=== PATIENT | male | born 1935 | race Hispanic/Latino ===

== ENCOUNTER 2019-09-04 05:36 | Observation (INO) | payer MEDICARE, OTHER ==
[2019-09-01 13:10] LABS: BASOPHILS # (AUTO) 0.1 (0.0-0.1); BASOPHILS % 1.2 % (0.0-1.0); EOSINOPHILS # (AUTO) 0.3 (0.0-0.4); HEMOGLOBIN 11.7 g/dL (14.0-18.0); LYMPHOCYTES # (AUTO) 1.7 (1.0-3.2); LYMPHOCYTES % 32.2 % (18.0-39.1); MEAN CORPUSCULAR HEMOGLOBIN 32.1 pg (28-32); MEAN CORPUSCULAR HGB CONC 32.5 g/dL (31-35); MEAN CORPUSCULAR VOLUME 98.9 fL (81-99); MONOCYTES # (AUTO) 0.5 (0.2-0.8); MONOCYTES % 8.9 % (4.4-11.3); NEUTROPHILS # (AUTO) 2.7 (2.1-6.9); NEUTROPHILS % 52.5 % (38.7-80.0); PLATELET COUNT 181 x10e3/uL (140-360); RED BLOOD COUNT 3.64 x10e6/uL (4.3-5.7); RED CELL DISTRIBUTION WIDTH 14.1 % (11.7-14.4)
--- NOTE | 2019-09-01 13:14 | Diagnostic Imaging Report ---
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 The trachea is midline. There are mildly increased bibasilar opacity suggestive of atelectasis/scarring. The lungs are otherwise symmetrically expanded without evidence for large focal consolidation, pneumothorax, or significant pleural effusion. The cardiomediastinal silhouette and pulmonary vasculature are within normal limits. Atherosclerotic calcifications and mild tortuosity noted of the thoracic aorta. No acute osseous abnormality is identified. The surrounding soft tissues are unremarkable. IMPRESSION: No acute cardiopulmonary process identified. Signed by: Dr. Abdulaziz Lugo MD on 09/01/2019 1:11 PM
[2019-09-01 13:25] LABS: ANION GAP 12.4 mmol/L (8-16); CALCIUM 9.1 mg/dL (8.4-10.2); CREATININE, SERUM 1.54 mg/dL (0.72-1.25); POTASSIUM 4.4 mmol/L (3.5-5.1)
[~2019-09-04] VITALS: Ht 165.1 cm; Wt 81.2 kg
[~2019-09-04 05:36] MED LIST: ASPIR 8181 MG PO; CARVEDILOL3.125 MG PO; CETIRIZINE HCL5 MG PO; DEXILANT60 MG PO; ENTRESTO 24 MG1 EACH PO; FINASTERIDE5 MG PO; FLOMAX0.4 MG PO; FUROSEMIDE40 MG PO; LIPITOR10 MG PO; NITROGLYCERIN0.4 MG SL; OXYBUTYNIN CHLOR5 M1 PO; RAMIPRIL5 MG PO; ULORIC40 MG PO; ULTRAM50 MG PO
[2019-09-04] MEDS ORDERED: CEFTRIAXONE SOD 1 GM/NS 50 ML 50 ML IV ONE (07:23)
[2019-09-04] MEDS ORDERED: B&O 60MG R/S 60 MG SUPP PR ONE (08:21)
[2019-09-04] MEDS ORDERED: ETOMIDATE 2 MG/ML 10 ML INJ IV ONE (14:51)
[2019-09-04] MEDS ORDERED: PROPOFOL IV EMULSION 10 MG/ML 20 ML VIAL ONE (14:51)
[2019-09-04] MEDS ORDERED: LIDOCAINE HCL 2% LOCAL INJ 5 ML SDV VIAL INJ ONE (14:51)
[2019-09-04] MEDS ORDERED: SEVOFLURANE INHAL SOLN 250 ML PEN BTL ONE (14:51)
[2019-09-04] MEDS ORDERED: ONDANSETRON HCL INJ 2MG/ML 2ML 2 MG/ML VIAL ONE (14:51)
[2019-09-04] MEDS ORDERED: EPHEDRINE SULFATE INJ 50 MG/ML VIAL ONE (14:51)
[2019-09-04] MEDS ORDERED: DEXAMETHASONE SOD PHOS INJ 4 MG/ML VIAL ONE (14:51)
[2019-09-04 16:06] VITALS: BP 115/71
[2019-09-04 16:10] VITALS: BP 115/71
--- NOTE | 2019-09-04 16:10 | NUR ---
PATIENT RECEIVED FROM PACU PER STRETCHER. ALERT AND VERBALLY RESPONSIVE. DENIED PAIN AT THIS TIME. SKIN WARM AND DRY TO TOUCH, RESP EVEN AND UNLABORED, ABDOMEN SOFT AND NON DISTENDED. CONTINUED BLADDER IRRIGATION IN PROGRESS; BLOODY URINE OBSERVED. BLOOD NOTED AROUND THE PENIS, PERINEAL CARE PROVIDED. TELEMETRY BOX [address] BED IN LOWER POSITION, CALL LIGHT AT REACH, INSTRUCTED TO CALL FOR ASSISTANCE NEEDED.
--- NOTE | 2019-09-04 19:10 | NUR ---
patient received awake, alert, lying quietly in bed. no c/o pain noted. cbi continues without difficulty. pm assessment complete. call lindquist placed within reach. patient instructed to call for assistance when needed.
--- NOTE | 2019-09-04 19:10 | NUR ---
patient received awake, alert, lying quietly in bed. no c/o pain noted. patient npo after mn for stress test tomorrow. patient verbalizes understanding of this. pm assessment complete. call lindquist placed within reach. patient instructed to call for assistance when needed. Addendum: 09/04/19 at 1940 by Mirta Mendieta RN error--wrong patient.
--- NOTE | 2019-09-04 19:11 | NUR ---
BEDSIDE REPORT GIVEN TO ON COMING NURSE. CBI IN PROGRESS.
[2019-09-04] MEDS ORDERED: FENTANYL CITRATE/PF 100MCG/2 ML INJ ONE (19:57)
[2019-09-04 20:55] VITALS: BP 102/69
[2019-09-04 21:04] VITALS: BP 102/69
[2019-09-05] VITALS (8 sets, daily range): BP systolic 102–110; BP diastolic 56–78
--- NOTE | 2019-09-05 07:17 | NUR ---
PATIENT IN BED RESTING WITH NO S/S OF DISTRESS. CBI IN PROGRESS. BED IN LOWER POSITION, CALL LIGHT AT REACH.
--- NOTE | 2019-09-05 11:49 | NUR ---
CBI IN PROGRESS, URINE CLEARING UP. PATIENT IN BED WITH CALL LIGHT AT REACH.
--- NOTE | 2019-09-05 15:15 | NUR ---
PATIENT SITTING UP IN BED TALKING ON THE PHONE, NO DISTRESS NOTED. CALL LIGHT AT REACH.
--- NOTE | 2019-09-05 18:53 | NUR ---
SPOKE WITH DR LOCKWOOD REGARDING PATIENT, ORDER RECEIVED TO HOLD CBI AND DISCONTINUE NIELSEN AT 5:00 AM IN THE MORNING.
--- NOTE | 2019-09-05 19:05 | NUR ---
Patient visited in room during nursing rounds. Patient alert and oriented x3. David catheter in place. Continuous bladder irrigation stopped at this time per MD (Dr. Glover' order). Urine currently pink-tinged to clear. Informed pt that david catheter will be removed at 0500 (09/06/19) per Dr. Glover' order. Pt denies any discomfort at this time. Pt having some intermittent dry cough. Call lindquist within reach. Will monitor closely.
[2019-09-05] MEDS ORDERED: NITROGLYCERIN 0.4 MG SUBL SL SCH (20:45)
[2019-09-05] MEDS ORDERED: TRAMADOL HCL 50 MG TAB PO SCH (20:45)
[2019-09-05] MEDS ORDERED: ATORVASTATIN 20 MG TAB PO SCH (21:00)
[2019-09-05] MEDS ORDERED: GUAIFENESIN 200 MG/10 ML UDC PO PRN (21:00)
[2019-09-05] MEDS ORDERED: TRAMADOL HCL 50 MG TAB PO PRN (21:30)
[2019-09-05] MEDS ORDERED: FUROSEMIDE 20 MG TAB PO SCH (21:30)
[2019-09-05] MEDS ORDERED: NITROGLYCERIN 0.4 MG SUBL SL PRN (21:30)
[2019-09-06 04:00] VITALS: BP 108/64
--- NOTE | 2019-09-06 07:00 | NUR ---
Blake catheter (coude) removed per MD order. Last urine clear to pink-tinged with no clots noted. Patient is due to void. Patient instructed to use urinal prn for urination.
[2019-09-06 07:25] VITALS: BP 106/85
[2019-09-06] MEDS ORDERED: PANTOPRAZOLE SOD 40 MG TABEC PO SCH (07:30)
[2019-09-06] MEDS ORDERED: CARVEDILOL 3.125 MG TAB PO SCH (09:00)
[2019-09-06] MEDS ORDERED: FEBUXOSTAT 80 MG TAB PO SCH (09:00)
[2019-09-06] MEDS ORDERED: TAMSULOSIN HCL 0.4 MG CAP PO SCH (09:00)
[2019-09-06] MEDS ORDERED: FINASTERIDE 5 MG TAB PO SCH (09:00)
[2019-09-06] MEDS ORDERED: FUROSEMIDE 40 MG TAB PO SCH (09:00)
[2019-09-06 09:20] VITALS: BP 106/85
[2019-09-06 11:21] VITALS: BP 102/52
--- NOTE | 2019-09-14 09:27 | Operative Report ---
DATE OF PROCEDURE: SURGEON: Petros Glover MD PREOPERATIVE DIAGNOSIS: Bladder outlet obstruction. POSTOPERATIVE DIAGNOSIS: Bladder outlet obstruction. OPERATIVE PROCEDURE: Cystoscopy, transurethral resection of the prostate. ANESTHESIA: General anesthesia. ESTIMATED BLOOD LOSS: Minimal. INDICATIONS: Mr. Winsome Goldstein is an 84-year-old gentleman with worsening bladder outlet obstruction and recent urinary retention. He now presents for a definitive surgical management of this problem. DESCRIPTION OF PROCEDURE: The patient was brought into the operating room, placed in supine position and after initiation of general anesthesia, was placed in dorsal lithotomy position and prepped and draped in the usual sterile fashion. Cystourethroscopy was performed using a 21-B[place] cystoscope. The anterior and posterior urethra were noted to be normal. The prostate revealed moderate elevation of the median bar and moderate hyperplasia of the lateral lobar tissues. The bladder was entered with mild difficulty. The prostatic fossa, however, was noted to be recently short. Upon entrance into the bladder, the ureteral orifices were in normal anatomic position and produced clear efflux bilaterally. There was some irritation on the posterior wall and dome from the Blake balloon. There were no other mucosal lesions identified. There were grade 2 trabeculations noted throughout the bladder. The bladder was left full and the cystoscope and sheath were removed. A 26-B[place]wanan resectoscope sheath was then placed in a retrograde fashion and the VidSys resectoscope was used to perform the procedure. Beginning at the 1 o'clock position and proceeding in a clockwise fashion down to the 6 o'clock position, all the adenomatous tissue between the bladder neck and the veru was resected down to the level of the surgical capsule. There was no gross penetration or perforation of the capsule appreciated. A similar procedure was performed on the contralateral side in a counter-clockwise fashion beginning at the 11 o'clock position and again ending at the 6 o'clock position. Again, there was no gross penetration or perforation of the capsule. The residual tissue at the roof and floor of the gland was resected free and the Osen evacuator was used to remove all chips. Once adequate hemostasis was secured, the bladder was left full and the cystoscope and sheath were removed. The patient was noted to have a brisk urinary flow with coude. A 24-B[place]an three-way coude catheter was then placed in a retrograde fashion and the balloon inflated with 45 mL of sterile water. The urinary efflux was noted to be blood-tinged. The patient was returned to supine position and started on continuous bladder irrigation. He was transferred to a bed and taken to the postanesthesia care unit in good condition. Of note, the needle and instrument count was correct at the conclusion of the case. MD REBA Maxwell/BLAIR /[id number]
== END 2019-09-06 13:00 | disposition home or self-care (01) ==
LOC: OR 05:36 → PACU V 11:17 → MED/SURG3 15:46 → UNDODISOB 09-06 13:00
PROVIDERS: ADMIT Urology; ATTEND Urology
DX: N40.1 Benign prostatic hyperplasia with lower urinary tract symptoms (principal); N32.0 Bladder-neck obstruction; R33.8 Other retention of urine; N13.8 Other obstructive and reflux uropathy; Z11.59 Encounter for screening for other viral diseases; M10.9 Gout, unspecified; I49.5 Sick sinus syndrome; Z95.0 Presence of cardiac pacemaker; Z01.812 Encounter for preprocedural laboratory examination
CPT/HCPCS: 36415 ×2; 52630; 71046; 80048; 82948; 85025; 87635; 88305; 93005; G0378 ×3; J0696; J1100; J2001; J2405; J2704; J3010; S0164